=== PATIENT | male | born 1975 | race Caucasian/White ===

== ENCOUNTER 2020-12-04 19:18 | Observation (INO) | payer MEDICAID, SELFPAY ==
[2020-12-04 20:00] VITALS: BP 124/86; PULSE 86; RESP 16; TEMP 36.6; O2SAT 98
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
[2020-12-04 20:44] LABS: Abs Immature Grans 0.01 10^3/uL (0.0-0.06); Absolute Basophil Count 0.04 10^3/uL (0.0-0.2); Absolute Eosinophil Count 0.13 10^3/uL (0.0-0.7); Absolute Lymphocyte Count 3.47 10^3/uL (1.2-3.4); Absolute Monocyte Count 0.64 10^3/uL (0.1-0.8); Absolute Neutrophil Count 5.25 10^3/uL (1.2-6.7); Basophils % 0.4; Eosinophils % 1.4; HCT 48.8 % (40.0-50.0); HGB 16.5 g/dL (13.5-17.5); Immature Grans % 0.1; Lymphocytes % 36.4; MCH 31.3 pg (27.0-33.0); MCHC 33.8 % (32.0-36.0); MCV 92.6 fL (80-95); MPV 9.3 fL (8.0-11.0); Monocytes % 6.7; Nucleated RBC 0 %; Platelet Count 284 10^3/uL (130-400); RBC 5.27 10^6/uL (4.36-5.78); RDW 11.8 % (11.8-14.1); RDW-SD 40.6 fL; WBC 9.54 10^3/uL (4.4-10.8)
[2020-12-04 21:03] LABS: *AMPHETAMINES SCREEN URINE Negative (Negative); *BARBITURATES SCREEN URINE Negative (Negative); *BENZODIAZEPINES SCREEN URINE Negative (Negative); Cannabinoids THC POSITIVE (Negative); Cocaine Screen,Urine Negative (Negative); METHADONE URINE SCREEN Negative (Negative); OPIATES URINE SCREEN Negative (Negative)
[2020-12-04 21:06] LABS: Tricyclic Antidepressants Negative (Negative)
[2020-12-04 21:09] LABS: ALT 22 U/L (16-63); AST 16 U/L (15-37); Albumin 4.4 g/dL (3.4-5.0); Alkaline Phosphatase 69 U/L (46-116); Anion Gap 12.5 mmol/L (3-11); BUN 6 mg/dL (7-18); Bilirubin, Total 0.5 mg/dL (0.2-1.0); CO2 23.5 mmol/L (21.0-32.0); CREATININE 0.74 mg/dL (0.70-1.30); Calcium 9.2 mg/dL (8.5-10.1); Chloride 105 mmol/L (98-107); Glucose 100 mg/dL (74-106); Potassium 3.2 mmol/L (3.5-5.1); Sodium 141 mmol/L (136-145); TSH 1.49 uIU/mL (0.36-3.74); Total Protein 8.1 g/dL (6.4-8.2)
[2020-12-04 21:10] LABS: ETHANOL BLOOD 284.7 mg/dL (<3)
[2020-12-04 21:15] LABS: Salicylate < 2.8 mg/dL (2.8-20.0)
[2020-12-04 21:17] LABS: Acetaminophen < 2 ug/mL (10-30)
[2020-12-05 05:30] VITALS: BP 121/83; PULSE 74; RESP 18; TEMP 37; O2SAT 99
[2020-12-05 07:55] LABS: Source Nasopharynx
[2020-12-05] MEDS: Potassium Chloride 20 MEQ TABCR 40 MEQ PO (08:24)
[2020-12-05 08:56] LABS: COVID-19 PCR Negative (Negative); Influenza A PCR Negative (Negative); Influenza B PCR Negative (Negative); RSV PCR Negative (Negative)
--- NOTE | 2020-12-05 09:05 | PDOC.MHCN ---
Date of service: 12/05/20 Time of Service: 06:15 Mental Health Crisis Note Presenting Issue How did you arrive at the ED and why did you come: Client arrived at ED via [place] [employer]. Client was found in the middle of the road on his way to jump off a bridge in [facility] as a suicide attempt. Precipitating Factors Client endorsed SI but no HI. There is no evidence of delusions present. Disposition BEHAVIOR: Client was affable and cooperative throughout the assessment. Client answered all questions asked. EYE CONTACT: Client maintained good eye contact throughout the assessment MOOD: Client presented with depressed and hopeless mood. AFFECT: Client presented with full affect and was very expressive APPETITE: Client reported poor appetite. Client stated he has one meal per day and averaged about 4-5 meals per week. SLEEP(trouble falling/staying asleep: Client reported sleep disturbance. Client stated he had difficulty falling and/or staying asleep. Client stated he sleep about an hour per night and that he is up by 2:30 am or 3:00 am. Plan Client is currently on voluntary status and is aggreable to seeking inpatient psychiatric treatment. Client will remain at [facility] till he is placed. e commerce manager and hospital staff will send medical and lab reports to [facility] as well as [facility] for evaluation and possible placement. Client will need to be reassessed if he decided to discharge before inpatient psychiatric placement. Signature Clinician's Name/Title: Sushila Cain Emergency Services Clinician
--- NOTE | 2020-12-05 11:28 | PDOC.CMSAFED ---
- If Service Date Differs Date of service: 12/05/20 Time of Service: 11:28 Care Management Safety Plan VOLUNTARY FOR INPATIENT PSYCHIATRIC STABILIZATION. Patient is appropriate in all interactions since arriving at [facility]; Patient has demonstrated appropriate coping and communication skills, has articulated his needs and concerns and is fully engaged during staff interactions. Safety plan has been established with patient, and care team, to adhere to patient goals, identify restrictions based on behavioral status, address nutrition, and determine allowed personal belongings, tools for hygiene and personal care. Determine level of activity including ambulation, level of supervision, visitors, and determine privileges based on behaviors and level of engagement by patient. SAFETY PLAN: 1. Will remain on suicide precautions and in paper clothes. 2. Will remain in room under direct supervision of one-on-one staff at all times provided by [employer]PS[employer], ALKA, FEATHEREDGER AND REDUCER MACHINE design editor. 3. May have paper cups, plates, finger foods as well as a cardboard spoon with which to eat meals. 4. Follow [facility] Management of the Admitted Behavioral Health Patient policy. 5. Comfort bath system only while in the ED. Will be allowed to shower with supervision and at nursing discretion if moved to Med/Surg. 6. No personal belongings. 7. Visitors-No visitors per [facility] Covid policy. 8. Activities: Television and soft cart items when available and at nursing discretion. 9. Bathroom privileges: Accompanied by staff while in the ED; allowed to use bathroom in room without supervision if moved to Med/Surg. 10. Phone: No telephone privileges at this time. 11. Due to VOLUNTARY status, if patient wishes to leave [facility], the [facility] broom worker must be contacted to re-evaluate patient prior to patient exiting the building. Patient is currently voluntarily at [facility] and seeking inpatient admission when a bed becomes available. [facility] Frontline Senior Clerk will continue seeking placement. Please contact the Protozoologist Electrolytic De Scaler ([phone]) and [facility] Senior Clerk ([phone]) for any needed changes in the Safety Plan. Safety plan has been provided to interdepartmental care team.
[2020-12-05 15:42] LABS: Anion Gap 8.8 mmol/L (3-11); BUN 11 mg/dL (7-18); CO2 26.2 mmol/L (21.0-32.0); CREATININE 0.86 mg/dL (0.70-1.30); Calcium 9.5 mg/dL (8.5-10.1); Chloride 105 mmol/L (98-107); Glucose 90 mg/dL (74-106); Sodium 140 mmol/L (136-145)
[2020-12-05 16:35] VITALS: BP 115/79; PULSE 73; RESP 16; TEMP 36.8; O2SAT 98
--- NOTE | 2020-12-05 16:41 | W.PM.HP.N ---
Date of service: 12/05/20 Time of Service: 16:41 Assessment and Plan Assessment and plan (1) Suicidal ideations: Start date: 12/05/20 Start time: 17:13 Status: Acute Assessment and plan: Recently [facility] from [facility] [place], found in the streets by [place] police and brought in for SI. He was medically cleared in the ED. Declared voluntary by 1:1 sitter, bed availabel at [facility] in am. above case discussed with Dr. Gallegos who is in agreement History of Present Illness History of Present Illness Chief Complaint: Suicidal ideation Narrative: 44 y.o male with little to no known PMH, brought to [facility] by [place] [employer] after being found wandering the road intoxicated. He was suicidal on admission with intoxication. He had a plan to kill himself with 2 knives. He was found to be medically cleared by the ED. evaluated patient and felt he was appropriate for voluntary admission he has a bed available at [facility] tomorrow therefore we have been asked to admit patient until bed availability. [facility] Medical History No significant past medical history Surgical History S/P hernia repair Social History Smoking/Tobacco Use Status: Current every day Tobacco Type: cigarettes Smoking risk assessment performed?: Yes Alcohol Intake: current Drug use: Occasionally Substance use type: marijuana Meds Home Medications and Allergies Home Medications Medication Instructions Recorded Confirmed Type Unknown [No Known Home Meds] 12/04/20 12/04/20 History Allergies Allergy/AdvReac Type Severity Reaction Status Date / Time No Known Allergies Allergy Unverified 12/04/20 20:27 Exam Const General: uncooperative (not answering questions), no acute distress, not in acute distress and disheveled Nutritional Appearance: thin Other: unable to assess orientation as he is not cooperative [facility] Head: normal to inspection, normocephalic and atraumatic Eyes Pupils: PERRL EOM: EOM intact bilaterally Neck Neck: full ROM, no lymphadenopathy and no JVD Resp Effort & Inspection: normal respiratory effort Auscultation: clear to auscultation bilaterally Cardio Jugular venous pressure: no JVD Rate: regular rate Rhythm: regular rhythm Heart Sounds: S1 normal and S2 normal GI Palpation: soft and no hepatosplenomegaly Auscultation: normal bowel sounds Skin General skin exam: no rashes or lesions noted Results Labs Result diagrams: 12/04/20 20:35 12/05/20 15:35 Labs: Laboratory Results - last 24 hr 12/04/20 12/04/20 12/04/20 20:10 20:35 20:35 WBC RBC Hgb Hct MCV MCH MCHC RDW Plt Count MPV Immature Gran % Neutrophils % Lymphocytes % Monocytes % Eosinophils % Basophils % Nucleated RBC % Absolute Neutrophils Absolute Lymphocytes Absolute Monocytes Absolute Eosinophils Absolute Basophils Sodium 141 Potassium 3.2 L Chloride 105 Carbon Dioxide 23.5 Anion Gap 12.5 H BUN 6 L Creatinine 0.74 Estimated GFR/1.73 m2 >= 60.00 Glucose 100 Calcium 9.2 Total Bilirubin 0.5 AST 16 ALT 22 Alkaline Phosphatase 69 Total Protein 8.1 Albumin 4.4 TSH 1.49 Salicylates < 2.8 Urine Opiates Screen Negative Urine Methadone Screen Negative Acetaminophen < 2 Ur Barbiturates Screen Negative Ur Tricyclics Screen Negative Ur Amphetamines Screen Negative U Benzodiazepines Scrn Negative Urine Cocaine Screen Negative Ur THC Screen Positive A Ethyl Alcohol 284.7 COVID-19 Source SARS-CoV-2 (PCR) Influenza Type A (PCR) Influenza Type B (PCR) RSV (PCR) 12/04/20 12/05/20 12/05/20 20:35 07:50 15:35 WBC 9.54 RBC 5.27 Hgb 16.5 Hct 48.8 MCV 92.6 MCH 31.3 MCHC 33.8 RDW 11.8 Plt Count 284 MPV 9.3 Immature Gran % 0.1 Neutrophils % 55.0 Lymphocytes % 36.4 Monocytes % 6.7 Eosinophils % 1.4 Basophils % 0.4 Nucleated RBC % 0 Absolute Neutrophils 5.25 Absolute Lymphocytes 3.47 H Absolute Monocytes 0.64 Absolute Eosinophils 0.13 Absolute Basophils 0.04 Sodium 140 Potassium 4.0 D Chloride 105 Carbon Dioxide 26.2 Anion Gap 8.8 BUN 11 Creatinine 0.86 Estimated GFR/1.73 m2 >= 60.00 Glucose 90 Calcium 9.5 Total Bilirubin AST ALT Alkaline Phosphatase Total Protein Albumin TSH Salicylates Urine Opiates Screen Urine Methadone Screen Acetaminophen Ur Barbiturates Screen Ur Tricyclics Screen Ur Amphetamines Screen U Benzodiazepines Scrn Urine Cocaine Screen Ur THC Screen Ethyl Alcohol COVID-19 Source Nasopharynx SARS-CoV-2 (PCR) Negative Influenza Type A (PCR) Negative Influenza Type B (PCR) Negative RSV (PCR) Negative Last Vital Signs Temp 36.8 C 12/05/20 16:35 Pulse 73 12/05/20 16:35 Resp 16 12/05/20 16:35 BP 115/79 12/05/20 16:35 Pulse Ox 98 12/05/20 16:35 COVID-19 Screening Have you, or household traveled for leisure in last 14 days?: No Had IN PERSON contact w/suspected or confirmed C-19 person: No
--- NOTE | 2020-12-05 18:13 | CMPROGNOTE_ITS ---
- If Service Date Differs Date of service: 12/05/20 Time of Service: 10:30 Care Management Progress Note S/O: The [employer] Police brought Miguel Angel to the ED last evening. At the time he was intoxicated with a JESSE of 284.7. Miguel Angel was found by police walking down the middle of the road reportedly on his way to a bridge in town with an intent of jumping off of the bridge. This morning Miguel Angel was evaluated by [facility] crisis screener, via zoom and was found to meet criteria for a voluntary psych hospitalization. Miguel Angel reports two previous suicide attempts and current suicidal ideation. CM will continue to follow. A: Miguel Angel remains at [facility] awaiting a voluntary psych placement. P: Referrals are made to [facility] and [facility] for review. Miguel Angel will remain at [facility] while [facility] continues to seek a voluntary placement for him. CM will continue to follow.
--- NOTE | 2020-12-06 11:14 | CMSP_ITS ---
- If Service Date Differs Date of service: 12/06/20 Time of Service: 11:14 Care Management Safety Plan VOLUNTARY FOR INPATIENT PSYCHIATRIC STABILIZATION. Patient is appropriate in all interactions since arriving at [facility]; Patient has demonstrated appropriate coping and communication skills, has articulated his needs and concerns and is fully engaged during staff interactions. Safety plan has been established with patient, and care team, to adhere to pat ient goals, identify restrictions based on behavioral status, address nutrition, and determine allowed personal belongings, tools for hygiene and personal care. Determine level of activity including ambulation, level of supervision, visitors, and determine privileges based on behaviors and level of engagement by patient. SAFETY PLAN: 1. Will remain on suicide precautions and in paper clothes. 2. Will remain in room under direct supervision of one-on-one staff at all times provided by [employer], ALKA, SPORTS RECRUITER computer networking instructor adjunct. 3. May have paper cups, plates, finger foods as well as a cardboard spoon with which to eat meals. 4. Follow [facility] Management of the Admitted Behavioral Health Patient policy. 5. Allowed to shower with supervision and at nursing discretion. 6. No personal belongings. 7. Visitors-No visitors per [facility] Covid policy. 8. Activities: Television and soft cart items when available and at nursing discretion. 9. Bathroom privileges: Allowed to use bathroom in room without supervision. 10. Phone: No telephone privileges at this time. 11. Due to VOLUNTARY status, if patient wishes to leave [facility], staff will contact [facility] Crisis Screener ([phone]) and On-Call Division Commander ([phone]) as soon as possible. In the event of elopement, notify [facility] Police ([phone]). Patient is currently voluntarily at [facility] and seeking inpatient admission when a bed becomes available. [facility] Frontline Rubber Roller Grinder will continue seeking placement. Please contact the Data Capture Specialist Division Commander ([phone]) and [facility] Rubber Roller Grinder ([phone]) for any needed changes in the Safety Plan. Safety plan has been provided to interdepartmental care team.
--- NOTE | 2020-12-06 11:14 | PDOC.CMSAFE ---
- If Service Date Differs Date of service: 12/06/20 Time of Service: 11:14 Care Management Safety Plan VOLUNTARY FOR INPATIENT PSYCHIATRIC STABILIZATION. Patient is appropriate in all interactions since arriving at [facility]; Patient has demonstrated appropriate coping and communication skills, has articulated his needs and concerns and is fully engaged during staff interactions. Safety plan has been established with patient, and care team, to adhere to patient goals, identify restrictions based on behavioral status, address nutrition, and determine allowed personal belongings, tools for hygiene and personal care. Determine level of activity including ambulation, level of supervision, visitors, and determine privileges based on behaviors and level of engagement by patient. SAFETY PLAN: 1. Will remain on suicide precautions and in paper clothes. 2. Will remain in room under direct supervision of one-on-one staff at all times provided by [employer]PS[employer], ALKA, SAMPLE WASHER peeled potato inspector. 3. May have paper cups, plates, finger foods as well as a cardboard spoon with which to eat meals. 4. Follow [facility] Management of the Admitted Behavioral Health Patient policy. 5. Allowed to shower with supervision and at nursing discretion. 6. No personal belongings. 7. Visitors-No visitors per [facility] Covid policy. 8. Activities: Television and soft cart items when available and at nursing discretion. 9. Bathroom privileges: Allowed to use bathroom in room without supervision. 10. Phone: No telephone privileges at this time. 11. Due to VOLUNTARY status, if patient wishes to leave [facility], staff will contact [facility] Crisis Screener ([phone]) and On-Call Electorate Officer ([phone]) as soon as possible. In the event of elopement, notify [facility] Police ([phone]). Patient is currently voluntarily at [facility] and seeking inpatient admission when a bed becomes available. [facility] Frontline Dairy Technologist will continue seeking placement. Please contact the Locker Plant Attendant Electorate Officer ([phone]) and [facility] Dairy Technologist ([phone]) for any needed changes in the Safety Plan. Safety plan has been provided to interdepartmental care team.
--- NOTE | 2020-12-06 11:25 | PDOC.CMPRO ---
- If Service Date Differs Date of service: 12/06/20 Time of Service: 11:25 Care Management Progress Note S/O: Miguel Angel is laying in bed when CM comes to meet with him. He is pleasant and easily engages in conversation. His affect is flat and mood depressed. He continues to report suicidal ideation. He talks a little bit about his inability to find work, feeling stuck in a rut, and essentially feeling hopeless. A: Miguel Angel is a 44 year old male who remains at [facility] awaiting a voluntary psych placement. P: Referrals were made to [facility] and [facility] yesterday. All other psych hospitals are full at this time. Miguel Angel will remain at [facility] while [facility] continues to seek placement for him. CM will continue to follow.
--- NOTE | 2020-12-06 12:00 | DSE_ITS ---
Date of service: 12/06/20 Time of Service: 12:00 DS: Diagnosis Discharge Diagnosis (1) Suicidal ideations: Start date: 12/06/20 Start time: 12:00 Status: Acute Asessment and Plan: Voluntary with SI found by Arabella tong, patient has been accepted to [facility] facility above case discussed with Dr. Gallegos who is in agreement. Discharge Plan Disposition Patient Disposition: [facility] Condition: Stable Discharge Details Reason For Visit: MAJOR DEPRESSION, SUICIDAL IDEATION Admit Date/Time: 12/05/20 16:04 Admit Provider: Raleigh Gallegos Attending Provider: Raleigh Gallegos Primary Care Provider: Carley Chauhan Hospital Course Hospital Course: 44 y.o male with little to no known PMH, brought to [facility] by Arabella TONG after being found wandering the road intoxicated. He was suicidal on admission with intoxication. He had a plan to kill himself with 2 knives. He was found to be medically cleared by the ED. evaluated patient and felt he was appropriate for voluntary admission bed available today at [facility]. He is being discharged to [facility]. Home Meds and New Rx's Prescriptions: No Action No Known Home Meds RF: 0 Discharge Instructions Activity:: Activity as Tolerated Equipment/Supplies:: No Equipment Needed Diet:: As Tolerated Discharge Orders Discharge Orders: Discharge Order (Routine); Ordered 12/06/20 Ordered By: Rebecca Boogie DS: Summary Status at Discharge Functional status at discharge: independent ambulation Overall status at discharge: patient is not back to baseline Mental Status: mental status grossly normal and other Speech and Movement: speech and movement normal Mood: other Affect: other Exam Const General: uncooperative (not answering questions), no acute distress, not in acute distress and disheveled Nutritional Appearance: thin HENMT Head: normal to inspection, normocephalic and atraumatic Eyes Pupils: PERRL EOM: EOM intact bilaterally Neck Neck: full ROM, no lymphadenopathy and no JVD Resp Effort & Inspection: normal respiratory effort Auscultation: clear to auscultation bilaterally Cardio Jugular venous pressure: no JVD Rate: regular rate Rhythm: regular rhythm Heart Sounds: S1 normal and S2 normal GI Palpation: soft and no hepatosplenomegaly Auscultation: normal bowel sounds Skin General skin exam: no rashes or lesions noted Psych Mental Status: mental status grossly normal and other Speech and Movement: speech and movement normal Mood: other Affect: other DS: Data Vitals/I&O Vitals and I&O: Vital Signs Temperature 36.8 C 12/05/20 16:35 Temperature Source Temporal Artery Scan 12/05/20 16:35 Pulse 73 12/05/20 16:35 Pulse Rhythm Regular 12/06/20 04:01 Respiratory Rate 16 12/05/20 16:35 Respiratory Effort Non-Labored 12/06/20 04:01 Respiratory Depth Normal 12/06/20 04:01 Respiratory Pattern Normal 12/06/20 04:01 Blood Pressure 115/79 12/05/20 16:35 Pulse Oximetry 98 12/05/20 16:35 Oxygen Delivery Method Room Air 12/05/20 16:35 Oxygen Flow Rate 0 12/05/20 16:35 Pain Level 0 12/05/20 17:13 Intake & Output 12/05/20 12/06/20 12/06/20 23:59 11:59 23:59 Other: Urine Appearance Clear Clear Data Completed and Pending Labs on day of discharge: Labs from last 24 hours 12/05/20 15:35 Sodium 140 Potassium 4.0 D Chloride 105 Carbon Dioxide 26.2 Anion Gap 8.8 BUN 11 Creatinine 0.86 Estimated GFR/1.73 m2 >= 60.00 Glucose 90 Calcium 9.5 [facility] Medical History No significant past medical history Surgical History S/P hernia repair Social History Smoking/Tobacco Use Status: Current every day Tobacco Type: cigarettes Smoking risk assessment performed?: Yes Alcohol Intake: current Alcohol Intake frequency: other Drug use: Occasionally Substance use type: marijuana
--- NOTE | 2020-12-06 16:53 | PGE_ITS ---
Date of Service Date of service: 12/06/20 Time of Service: 16:53 Assessment and Plan Assessment and plan (1) Suicidal ideations: Start date: 12/06/20 Start time: 16:54 Status: Acute Assessment and plan: Recently [facility] from [facility] [place], found in the streets by [employer] police and brought in for SI. He was medically cleared in the ED. Declared voluntary by 1:1 sitter, bed availabel at [facility] no transportation available for patient. above case discussed with Dr. Gallegos who is in agreement Subjective Subjective Interval history since last seen: Patient discharge was canceled for today due to lack of transportation. See discharge summary for note. Continues to have thoughts of SI Exam Narrative Exam Narrative: Per discharge summary Const General: uncooperative (not answering questions), no acute distress, not in acute distress and disheveled Nutritional Appearance: thin HENMT Head: normal to inspection, normocephalic and atraumatic Eyes Pupils: PERRL EOM: EOM intact bilaterally Neck Neck: full ROM, no lymphadenopathy and no JVD Resp Effort & Inspection: normal respiratory effort Auscultation: clear to auscultation bilaterally Cardio Jugular venous pressure: no JVD Rate: regular rate Rhythm: regular rhythm Heart Sounds: S1 normal and S2 normal GI Palpation: soft and no hepatosplenomegaly Auscultation: normal bowel sounds Skin General skin exam: no rashes or lesions noted Psych Mental Status: mental status grossly normal and other Speech and Movement: speech and movement normal Mood: other Affect: other Objective Last Vital Signs Temp 36.8 C 12/05/20 16:35 Pulse 73 12/05/20 16:35 Resp 16 12/05/20 16:35 BP 115/79 12/05/20 16:35 Pulse Ox 98 12/05/20 16:35
--- NOTE | 2020-12-07 13:29 | W.NUTRFU ---
Date of service: 12/07/20 Time of Service: 13:29 Nutritional Follow up NOTE: Pt admitted with suicidal ideations, awaiting placement. Following meal plan and meeting nutrient and fluid needs at this time. Not at nutritional risk at this time. Will continue to follow Time Spent in Nutritional Counseling and Treatment: 0
--- NOTE | 2020-12-07 14:27 | MHPN_ITS ---
Date of service: 12/07/20 Time of Service: 13:00 Mental Health Crisis Note Presenting Issue How did you arrive at the ED and why did you come: Miguel Angel arrived via [employer] after making threats to jump off a bridge that he did not want to be here any more. Precipitating Factors Today Miguel Angel still endorses SI and is clear that he did not come of his own choice but does agree to go voluntarily. He did get upset about not being able to have a cigarette before leaving to go to and made statements that this could be a deal breaker. I asked him to clarify what he meant by this and that [facility] stands by to do an EE if he does not go which means he will go either way. He apologized and explained that he is not a malicious person and means no disrespect he just was hoping to have a cigarette before he left. I explained that he could certainly ask [facility] when they arrive if they would allow one and it is possible they will as long as he is cooperative. Disposition BEHAVIOR: Miguel Angel was a little grumpy during our zoom initially but quickly was able to turn this around once his need was validated. He shows good insight and judgment. EYE CONTACT: good MOOD: As reported above a bit grumpy initially but was able to turn it around. 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 SLEEP(trouble falling/staying asleep: Good per his report. Plan Miguel Angel was accepted yesterday to but transportation could not be secured until today. He will be transported at 2pm to . I offered for us to be available for follow up care if he so chooses and he reports that he may not return here as he feels he has nothing enticing him to come back. Signature Clinician's Name/Title: Radha Pablo MS, [facility] Emergency Services Clinician
--- NOTE | 2020-12-07 18:49 | NUR.NOTE ---
received phone call from [facility] stating that pt arrived and was missing one of his bags. Checked discharge nursing note, with no notation of brown personal bag. Placed call to the ER and was advised that bag was still in the Emergency Department per Svetlana Reyes, Child Care Development Specialist. Nursing Note:
--- NOTE | 2020-12-07 19:47 | CMDISCH_ITS ---
- If Service Date Differs Date of service: 12/07/20 Time of Service: 19:47 LACE Index Scoring Tool - Questions: Length of Stay (in days): 2 Acuity (Admit via E.D.?): Yes E.D. Visits: 2 - Answers: Total Score: 7 Risk of Readmission: Low Risk Care Management Discharge Reason for Hospitalization: suicidal ideation Discharge Plan: Miguel Angel will be transferred to the [facility] for a voluntary psychiatric admission. He will transport via [employer]. Patient/Family Education Needs: expectations, follow up plan, Ask Me Three
--- NOTE | 2020-12-08 08:42 | NUR.NOTE ---
Addendum entered by Devika Hernandez 12/09/20 11:57: Spoke with [facility] to confirm that his belongings were indeed shipped. The box of belongings was to be shipped by [employer] yesterday, Devika Hernandez Original Note: Nursing Note: A note was left for me from the food production supervisor and chief clerk shelter, Saranya. This patient has belongings at [facility], he was transferred to [facility] and will not be returning to the area. Would we send his belongings to [place]? I boxed up the belongings in a [employer] box and had them shipped out on this date. In the belongings bag was a multi colored cloth knapsack with multiple small miscellaneous items and 2 ratchet straps. This was sent. Devika Hernandez
== END 2020-12-07 14:18 | disposition short-term general hospital (02) ==
LOC: ER 12-05 15:27 → MS 12-05 16:43
PROVIDERS: Emergency Medicine; Admitting Provider Internal Medicine; Emergency Provider Physician Assistant; PCP Family Medicine; Visit Provider Internal Medicine
DX: F32.9 Major depressive disorder, single episode, unspecified (principal); R45.851 Suicidal ideations; F17.210 Nicotine dependence, cigarettes, uncomplicated; F10.120 Alcohol abuse with intoxication, uncomplicated; Y90.8 Blood alcohol level of 240 mg/100 ml or more
CPT/HCPCS: 36415; 80048; 80053; 80307; 87637; 99217; 99220; 99226; 99285; 80320; 80329; 84443; 85025; 99284; G0378

== ENCOUNTER 2020-12-04 19:53 | Emergency (ER) | payer MEDICAID, SELFPAY | END 2020-12-04 22:25 | LOC: ER 12-05 02:40 | PROVIDERS: PCP Family Medicine | DX: R69 Illness, unspecified (principal) ==